=== PATIENT | female | born 1985 | race Caucasian/White ===

== ENCOUNTER 2016-08-05 15:51 | Emergency (ER) | payer SELFPAY ==
[~2016-08-05] VITALS: Ht 154.9 cm; Wt 91.5 kg
[~2016-08-05 15:51] MED LIST: ADVIL200 MG PO; ALBUTEROL SULF8.5 GM IH; ALLEGRA ALLERG180 MG PO; AMOXICILLIN; AMOXICILLIN500 M1 PO; ANAPROX DS550 M1 PO; ATARAX,VISTARIL25 MG PO; ATIVAN0.5 MG PO; AUGMENTIN875 MG PO; BACTRIM,SEPT1 TABLET PO; BENADRYL ALLERG25 MG PO; BENADRYL25 MG PO; BENTYL20 MG PO; CITALOPRAM HBR10 MG PO; CLEOCIN150 MG PO; ESCITALOPRAM OX10 MG PO; FLINTSTONE VIT PO; HYCODAN SYRUP480 ML PO; IBU-200200 MG PO; LEVAQUIN750 MG PO; MUCINEX600 MG PO; MULTIVITAMIN1 EAC1 PO; MULTIVITAMIN1 EACH PO; MVI-12,MULTIVI100 ML IV; NOHOMEMEDS; PAXIL20 MG PO; PERCOCET 5/31 TABLET PO; PHENERGAN-CODE120 ML PO; PREDNISONE10 MG PO; PREDNISONE20 MG PO; PREDNISONE50 MG PO; PROAIR HFA8.5 GM IH; PROMETHAZINE HC25 M1 PO; REGLAN10 MG PO; ROBITUSSIN AC,T10 ML PO; TESSALON PERLE100 MG PO; TESSALON200 MG PO; TYLENOL EXTRA500 M1 PO; VENTOLIN HFA18 GM IH; ZANTAC300 MG PO; ZOFRAN8 MG PO; ZYRTEC10 M2 PO; [UNRECOGNIZED DRUG - OTHER]; [UNRECOGNIZED DRUG - REMARK]
[2016-08-05 17:09] LABS: HEMATOCRIT 46.1 % (36.0-46.0); MCH 30.5 PG (29.0-34.0); MCHC 34.7 G/DL (30.0-36.0); MCV 87.8 FL (83-99); MEAN PLAT.VOLUME 10.8 uM^3 (9.5-12.4); PLATELET COUNT 339 K/uL (156-360); RBC DIS.WIDTH-CV 13.9 % (11.8-14.6); RBC DIS.WIDTH-SD 44.4 % (39-53); RED BLOOD COUNT 5.25 M/uL (3.80-5.20); WHITE BLOOD COUNT 17.7 K/uL (4.1-10.2)
[2016-08-05 17:19] LABS: CHLORIDE 105 mEq/L (99-109); POTASSIUM 3.7 mEq/L (3.7-5.4); SODIUM 140 mEq/L (136-147)
[2016-08-05 17:22] LABS: GLUCOSE 99 mg/dL (70-99)
[2016-08-05 17:23] LABS: ANION GAP 15 MEQ/L (2-14)
[2016-08-05 17:24] LABS: TOTAL BILIRUBIN 0.8 mg/dL (0.0-1.0)
[2016-08-05 17:25] LABS: ALKALINE PHOSPHATASE 152 IU/L (3-129); GFR ESTIMATE (CALCULATED) > 59 mL/min/
[2016-08-05 17:26] LABS: UREA NITROGEN (BUN) 14 mg/dL (9-23)
[2016-08-05 17:29] LABS: LIPASE 23 U/L (1.0-51.0)
[2016-08-05 17:34] LABS: QUANTITATIVE HCG < 4.0 MIU/ML
[2016-08-05 19:08] LABS: ADD MIUA? YES; BILIRUBIN NEGATIVE; BLOOD SMALL; COLOR YELLOW ((YELLOW)); GLUCOSE (STRIP) NEGATIVE; KETONES NEGATIVE; LEUKOCYTES NEGATIVE; NITRITE NEGATIVE; PROTEIN (STRIP) NEGATIVE; UROBILINOGEN 0.2 MG/DL (0.2-1.0)
[2016-08-05 19:11] LABS: BACTERIA RARE /HPF; EPITHELIAL CELLS 1+ /HPF; MUCUS TRACE /LPF; RED BLOOD CELLS 0-5 /HPF (0-5); UCUL ADDED? NO; WHITE BLOOD CELLS 0-5 /HPF (0-5)
[2016-08-05] MEDS ORDERED: ZOFRAN ODT4 MG PO (19:41)
[2016-08-05] MEDS ORDERED: PHENERGAN25 MG PR (19:41)
[2016-08-05] MEDS ORDERED: MOTRIN800 MG PO (19:42)
[2016-08-05 20:29] VITALS: BP 149/102
== END 2016-08-05 20:30 | disposition home or self-care (01) ==
LOC: EME 15:51
DX: R10.9 Unspecified abdominal pain (principal); R11.2 Nausea with vomiting, unspecified; R19.7 Diarrhea, unspecified; F17.200 Nicotine dependence, unspecified, uncomplicated; Z90.49 Acquired absence of other specified parts of digestive tract
CPT/HCPCS: 74177; 80053; 81003; 83690; 84702; 85027; 99281; 99285; J1885; J2270; J2405; J7030